=== PATIENT | male | born 1990 | race Caucasian/White ===

== ENCOUNTER 2017-11-13 10:57 | Emergency (ER) | payer OTHER, BC ==
[2017-11-13 11:10] VITALS: BP 161/93; PULSE 89; TEMP 98.4; BMI 32.5
--- NOTE | 2017-11-13 11:39 | PDOC ---
History of Present Illness - General Chief Complaint: Injury Stated Complaint: LT ARM LACERATION Time Seen by Provider: 11/13/17 11:21 History Source: Patient Exam Limitations: No Limitations - History of Present Illness Initial Comments: 11/13/17 11:36 27 yr male with lac to left forearm at work ([employer]) with a piece of metal. Pt states tetanus is UTD. pt has no numbness or tingling. mild bleeding noted on arrival. 11/13/17 12:04 Timing/Duration: reports: just prior to arrival Severity: Yes: mild Location: reports: extremities (left forearm) Past History - Past Medical History Allergies/Adverse Reactions: Allergies Allergy/AdvReac Type Severity Reaction Status Date / Time No Known Allergies Allergy Verified 11/13/17 11:06 Home Medications: Ambulatory Orders NK [No Known Home Medication] 11/13/17 - Suicide/Smoking/Psychosocial Hx Smoking History: Never smoked *Physical Exam - Vital Signs Last Vital Signs Temp Pulse Resp BP Pulse Ox 98.4 F 89 18 161/93 99 11/13/17 11:00 11/13/17 11:00 11/13/17 11:00 11/13/17 11:00 11/13/17 11:00 - Physical Exam General Appearance: Yes: Nourished, Appropriately Dressed HEENT: positive: EOMI, EDNA Extremity: positive: Normal Capillary Refill, Normal Range of Motion, Other ( left forearm with linear laceration(see procedure note)) Medical Decision Making - Medical Decision Making 11/13/17 12:03 cc: laceration left arm at work on metal wound repair by ER resident Franny (see note) pt is UTD with tetanus 11/13/17 19:05 *DC/Admit/Observation/Transfer Diagnosis at time of Disposition: Laceration - Discharge Dispostion Disposition: HOME Condition at time of disposition: Good - Referrals - Patient Instructions Printed Discharge Instructions: DI for Laceration Repair Additional Instructions: keep area clean and dry apply bacitracin once a day to the area return in 7-10 days for suture removal - Post Discharge Activity
== END 2017-11-13 12:10 | disposition home or self-care (01) ==
LOC: JERFT 10:57
PROC: 0HQEXZZ Repair Left Lower Arm Skin, External Approach (ICD-10-PCS; principal; 2017-11-13)
DX: S51.812A Laceration without foreign body of left forearm, initial encounter (principal); W26.8XXA Contact with other sharp object(s), not elsewhere classified, initial encounter; Y93.89 Activity, other specified; Y92.59 Other trade areas as the place of occurrence of the external cause; Y99.0 Civilian activity done for income or pay
CPT/HCPCS: 99281-25